=== PATIENT | male | born 1950 | race Caucasian/White ===

== ENCOUNTER 2024-05-21 16:50 | Inpatient (IN) ==
[2024-05-21] MEDS: Lactated Ringers 1000 ml BAG 1,000 ML IV ONE (21:07)
[2024-05-21 21:23] LABS: Urine Appearance Clear; Urine Bilirubin Negative (Negative); Urine Blood Negative (Negative); Urine Color Colorless; Urine Glucose Negative (Negative); Urine Ketones Negative (Negative); Urine Nitrite Negative (Negative); Urine Protein Trace (Negative); Urine Specific Gravity 1.009 (1.002-1.030); Urine Urobilinogen Negative (Negative)
[2024-05-21 21:33] LABS: Hematocrit 26.1 % (38-53); Hemoglobin 8.7 g/dL (13.2-16.3); Mean Corpuscular Hemoglobin 32.5 pg (27-33); Mean Corpuscular Hgb Conc 33.2 g/dL (31-36); Platelet Count 100 10^3/uL (150-450); Red Blood Count 2.67 10^6/uL (4.06-5.63); Red Cell Distribution Width 17.1 % (12-17); White Blood Count 3.2 10^3/uL (3.6-10.2)
[2024-05-21 22:23] LABS: TSH Ultra Thyroid Stim Horm 5.04 mcIU/mL (0.34-5.60)
[2024-05-21 22:35] LABS: ABS Lymphocytes 2.6 10^3/uL (1.0-4.8); ABS Monocytes 0.1 10^3/uL (0.0-1.1); ABS Neutrophils 0.5 10^3/uL (1.5-7.6); Anisocytosis 1+; Eosinophil % 0.5 %; Lymphocyte % 81.5 %
[2024-05-21 22:37] LABS: Albumin 3.1 g/dL (3.2-5.2); Albumin/Globulin Ratio 1.3 (1-3); Calcium 8.8 mg/dL (8.6-10.3); Creatinine, Serum 2.19 mg/dL (0.67-1.17); Globulin 2.4 g/dL (2-4); Magnesium 2.3 mg/dL (1.9-2.7); Potassium 4.2 mmol/L (3.5-5.0); Total Bilirubin 0.5 mg/dL (0.2-1.0); Total Protein 5.5 g/dL (6.4-8.9); eGFR CKD-EPI 31.4 (>60)
[2024-05-21 23:48] LABS: High Sensitivity Troponin 1 Hr 13 pg/mL (<20)
[2024-05-22 03:17] LABS: Calcium 8.8 mg/dL (8.6-10.3); Creatinine, Serum 2.25 mg/dL (0.67-1.17); Potassium 4.5 mmol/L (3.5-5.0); eGFR CKD-EPI 30.4 (>60)
[2024-05-22] MEDS: D5W 1000 ml BAG 1,000 ML IV SCH ×2 (05:47→09:56)
[2024-05-22 08:03] LABS: Hematocrit 25.4 % (38-53); Hemoglobin 8.4 g/dL (13.2-16.3); Mean Corpuscular Hemoglobin 32.8 pg (27-33); Mean Corpuscular Hgb Conc 33.2 g/dL (31-36); Mean Corpuscular Volume 98.6 fL (80-97); Red Blood Count 2.58 10^6/uL (4.06-5.63); Red Cell Distribution Width 17.5 % (12-17); White Blood Count 2.7 10^3/uL (3.6-10.2)
[2024-05-22 08:18] LABS: Calcium 8.5 mg/dL (8.6-10.3); Creatinine, Serum 2.21 mg/dL (0.67-1.17); Potassium 4.3 mmol/L (3.5-5.0); eGFR CKD-EPI 31.1 (>60)
[2024-05-22 09:00] LABS: ABS Lymphocytes 2.3 10^3/uL (1.0-4.8); ABS Neutrophils 0.4 10^3/uL (1.5-7.6); Eosinophil % 0.6 %; Lymphocyte % 84.5 %; Mean Platelet Volume 7.7 fL (7.5-11.2); Nucleated Red Blood Cells % 0.1 %/100WBC (0.0-0.8); Platelet Count 82 10^3/uL (150-450); RBC Morphology Normal (Normal)
[2024-05-22] MEDS ORDERED: Magic MouthWash2-BEN/MAAL/LIDO/NYST 240 ML BTL (alt formulation) SWISH SPIT SCH (09:00)
[2024-05-22] MEDS ORDERED: Cefepime 2 GM in Dextrose 2 GM/50 ML BAG IV SCH (14:00)
[2024-05-22] MEDS: Cefepime 1 GM in Dextrose 1 GM/50 ML BAG IV SCH (15:22)
[2024-05-22 15:53] LABS: Calcium 8.4 mg/dL (8.6-10.3); Creatinine, Serum 2.24 mg/dL (0.67-1.17); Potassium 3.7 mmol/L (3.5-5.0); eGFR CKD-EPI 30.6 (>60)
[2024-05-22] MEDS: Scopolamine 1 mg/72hr PATCH TRANSDERM SCH (16:58)
[2024-05-22 22:31] LABS: Calcium 8.1 mg/dL (8.6-10.3); Creatinine, Serum 2.3 mg/dL (0.67-1.17); Potassium 3.7 mmol/L (3.5-5.0); eGFR CKD-EPI 29.6 (>60)
[2024-05-23] MEDS: D5W 1000 ml BAG 1,000 ML IV SCH ×4 (00:08→16:15)
[2024-05-23 07:54] LABS: Calcium 7.8 mg/dL (8.6-10.3); Creatinine, Serum 2.45 mg/dL (0.67-1.17); Magnesium 2.2 mg/dL (1.9-2.7); Potassium 3.6 mmol/L (3.5-5.0); eGFR CKD-EPI 27.5 (>60)
[2024-05-23 07:58] LABS: Hematocrit 22.2 % (38-53); Hemoglobin 7.3 g/dL (13.2-16.3); Mean Corpuscular Hemoglobin 32.3 pg (27-33); Mean Corpuscular Hgb Conc 33.1 g/dL (31-36); Mean Corpuscular Volume 97.8 fL (80-97); Red Blood Count 2.27 10^6/uL (4.06-5.63); Red Cell Distribution Width 17.1 % (12-17); White Blood Count 2.2 10^3/uL (3.6-10.2)
[2024-05-23 10:26] LABS: ABS Lymphocytes 1.9 10^3/uL (1.0-4.8); ABS Neutrophils 0.2 10^3/uL (1.5-7.6); ABS Nucleated RBC 0.01 10^3/ul; Eosinophil % 0.6 %; Lymphocyte % 89.3 %; Mean Platelet Volume 7.9 fL (7.5-11.2); Nucleated Red Blood Cells % 0.3 %/100WBC (0.0-0.8); Platelet Count 43 10^3/uL (150-450)
[2024-05-23 13:15] LABS: Calcium 7.7 mg/dL (8.6-10.3); Creatinine, Serum 2.43 mg/dL (0.67-1.17); Potassium 3.6 mmol/L (3.5-5.0); eGFR CKD-EPI 27.7 (>60)
[2024-05-23] MEDS: Chlorhexidine MOUTHWASH 0.12% 15 ML UDC SWISH SPIT SCH (13:43)
[2024-05-23] MEDS ORDERED: Vancomycin per Pharmacy 1 EA NOTE FOLLOW UP SCH (15:00)
[2024-05-23] MEDS: Vancomycin 1,000 MG in NS 0.9% 250 ml 250 ML IVPB ONE (16:01)
[2024-05-23 19:01] LABS: Calcium 7.5 mg/dL (8.6-10.3); Creatinine, Serum 2.52 mg/dL (0.67-1.17); Potassium 3.5 mmol/L (3.5-5.0); eGFR CKD-EPI 26.5 (>60)
[2024-05-24 06:54] LABS: Calcium 7.3 mg/dL (8.6-10.3); Creatinine, Serum 2.56 mg/dL (0.67-1.17); Potassium 3.3 mmol/L (3.5-5.0)
[2024-05-24 07:57] LABS: ABS Lymphocytes 2.6 10^3/uL (1.0-4.8); ABS Neutrophils 0.3 10^3/uL (1.5-7.6); Eosinophil % 0.6 %; Hematocrit 19.1 % (38-53); Hemoglobin 6.4 g/dL (13.2-16.3); Mean Corpuscular Hemoglobin 32.3 pg (27-33); Mean Corpuscular Hgb Conc 33.5 g/dL (31-36); Mean Corpuscular Volume 96.6 fL (80-97); Mean Platelet Volume 7.4 fL (7.5-11.2); Nucleated Red Blood Cells % 0.1 %/100WBC (0.0-0.8); Platelet Count 21 10^3/uL (150-450); Red Blood Count 1.98 10^6/uL (4.06-5.63); Red Cell Distribution Width 16.7 % (12-17)
[2024-05-24] MEDS: D5W 1000 ml BAG 1,000 ML IV SCH (10:25)
[2024-05-24] MEDS: Azithromycin 500 mg/250 ml NS 500 MG/250 ML BAG IVPB SCH (12:45)
[2024-05-24 16:52] LABS: Hematocrit 27.8 % (38-53); Hemoglobin 9.5 g/dL (13.2-16.3)
[2024-05-25 07:10] LABS: Calcium 7.6 mg/dL (8.6-10.3); Creatinine, Serum 2.46 mg/dL (0.67-1.17); Magnesium 2.1 mg/dL (1.9-2.7); Phosphorus 4.2 mg/dL (2.5-5.0); Potassium 3.4 mmol/L (3.5-5.0); Vancomycin Random 8.3 mcg/mL; eGFR CKD-EPI 27.3 (>60)
[2024-05-25 07:33] LABS: ABS Lymphocytes 3.1 10^3/uL (1.0-4.8); ABS Monocytes 0.1 10^3/uL (0.0-1.1); ABS Neutrophils 0.5 10^3/uL (1.5-7.6); Eosinophil % 0.6 %; Hematocrit 24.9 % (38-53); Hemoglobin 8.5 g/dL (13.2-16.3); Lymphocyte % 83.5 %; Mean Corpuscular Hgb Conc 34.2 g/dL (31-36); Mean Corpuscular Volume 96.7 fL (80-97); Mean Platelet Volume 8.8 fL (7.5-11.2); Nucleated Red Blood Cells % 0.1 %/100WBC (0.0-0.8); Platelet Count 10 10^3/uL (150-450); Red Blood Count 2.57 10^6/uL (4.06-5.63); Red Cell Distribution Width 16.2 % (12-17); White Blood Count 3.7 10^3/uL (3.6-10.2)
[2024-05-25 07:34] LABS: Anisocytosis 1+
[2024-05-25] MEDS: Vancomycin Random Level NOTE FOLLOW UP ONE (08:50)
[2024-05-25] MEDS: Potassium Chlor 20 meq TAB.ER PO ONE (11:17)
[2024-05-25] MEDS: KCL 10 MEQ/50 ML IVPREMIX 10 MEQ/50 ML BAG IV SCH (11:18)
[2024-05-25] MEDS: Vancomycin 1000 MG in NS 0.9% 250 ML IVPB ONE (11:20)
[2024-05-25] MEDS: Dexamethasone 0.1 MG/ML ORALSYR SWISH SPIT SCH (17:24)
[2024-05-25] MEDS: Dexamethasone Oral Solution 1 MG/ML 10 ML UDC (10 MG) PO SCH (17:38)
[2024-05-26 07:26] LABS: Hematocrit 21.4 % (38-53); Hemoglobin 7.4 g/dL (13.2-16.3); Mean Corpuscular Hemoglobin 32.8 pg (27-33); Mean Corpuscular Hgb Conc 34.5 g/dL (31-36); Mean Corpuscular Volume 95.2 fL (80-97); Mean Platelet Volume 9.4 fL (7.5-11.2); Platelet Count 5 10^3/uL (150-450); Red Blood Count 2.25 10^6/uL (4.06-5.63); Red Cell Distribution Width 15.8 % (12-17); White Blood Count 3.4 10^3/uL (3.6-10.2)
[2024-05-26 08:01] LABS: Calcium 7.5 mg/dL (8.6-10.3); Creatinine, Serum 2.48 mg/dL (0.67-1.17); Magnesium 2.1 mg/dL (1.9-2.7); Potassium 3.3 mmol/L (3.5-5.0); Vancomycin Random 15.3 mcg/mL; eGFR CKD-EPI 27.1 (>60)
[2024-05-26] MEDS: KCL 10 MEQ/50 ML IVPREMIX 10 MEQ/50 ML BAG IV SCH (11:01)
[2024-05-26] MEDS: Potassium Chlor 20 meq TAB.ER PO ONE (11:02)
[2024-05-26] MEDS: Alteplase (CATHFLO) 2 MG VIAL IV ONE (11:03)
[2024-05-26 11:50] LABS: ABS Neutrophils 0.7 10^3/uL (1.5-7.6)
[2024-05-26] MEDS: Vancomycin Random Level NOTE FOLLOW UP ONE (12:02)
[2024-05-26] MEDS: Vancomycin 1000 MG in NS 0.9% 250 ML IVPB ONE (12:03)
[2024-05-26 12:12] LABS: ABS Lymphocytes 2.6 10^3/uL (1.0-4.8); ABS Nucleated RBC 0.01 10^3/ul; Eosinophil % 0.4 %; Lymphocyte % 78.1 %; Nucleated Red Blood Cells % 0.3 %/100WBC (0.0-0.8); RBC Morphology Normal (Normal)
[2024-05-26 18:07] LABS: Hematocrit 20.6 % (38-53); Hemoglobin 7.2 g/dL (13.2-16.3); Mean Corpuscular Hemoglobin 33.4 pg (27-33); Mean Corpuscular Volume 95.2 fL (80-97); Red Blood Count 2.16 10^6/uL (4.06-5.63); Red Cell Distribution Width 15.7 % (12-17); White Blood Count 3.7 10^3/uL (3.6-10.2)
[2024-05-26] MEDS: TPN 24 HR with Dextrose 50% Water 500 ML, Amino Acid Infusion 10% 850 ML, Sterile Water... CENT\\PICC SCH (18:34)
[2024-05-26 18:46] LABS: Platelet Count Platelets clumped. 10^3/uL (150-450)
[2024-05-26 19:05] LABS: ABS Lymphocytes 2.5 10^3/uL (1.0-4.8); ABS Neutrophils 1.2 10^3/uL (1.5-7.6); Eosinophil % 0.2 %; Lymphocyte % 67.1 %; Nucleated Red Blood Cells % 0.1 %/100WBC (0.0-0.8)
[2024-05-26 19:06] LABS: RBC Morphology Normal (Normal)
[2024-05-26 19:25] LABS: Mean Platelet Volume 7.1 fL (7.5-11.2); Platelet Count 18 10^3/uL (150-450)
[2024-05-27 08:20] LABS: Hematocrit 21.2 % (38-53); Hemoglobin 7.2 g/dL (13.2-16.3); Mean Corpuscular Hemoglobin 32.4 pg (27-33); Mean Corpuscular Hgb Conc 34.1 g/dL (31-36); Mean Platelet Volume 7.6 fL (7.5-11.2); Platelet Count 11 10^3/uL (150-450); Red Blood Count 2.23 10^6/uL (4.06-5.63); Red Cell Distribution Width 15.6 % (12-17); White Blood Count 3.6 10^3/uL (3.6-10.2)
[2024-05-27 08:58] LABS: Calcium 7.9 mg/dL (8.6-10.3); Creatinine, Serum 2.22 mg/dL (0.67-1.17); Magnesium 2.2 mg/dL (1.9-2.7); Potassium 4.1 mmol/L (3.5-5.0); eGFR CKD-EPI 30.9 (>60)
[2024-05-27 09:15] LABS: ABS Lymphocytes 2.1 10^3/uL (1.0-4.8); ABS Neutrophils 1.4 10^3/uL (1.5-7.6); Dohle Bodies Present; Eosinophil % 0.1 %; Lymphocyte % 59.3 %; Nucleated Red Blood Cells % 0.1 %/100WBC (0.0-0.8); RBC Morphology Normal (Normal)
[2024-05-27] MEDS: KCL 10 MEQ/50 ML IVPREMIX 10 MEQ/50 ML BAG IV SCH (09:48)
[2024-05-27] MEDS: Potassium Chloride LIQUID 20 MEQ/15 ML LIQUID PO ONE (09:49)
[2024-05-27] MEDS: TPN 24 HR with Dextrose 50% Water 500 ML, Amino Acid Infusion 10% 850 ML, Sterile Water... CENT\\PICC SCH (17:18)
[2024-05-28 06:44] LABS: Calcium 8.5 mg/dL (8.6-10.3); Creatinine, Serum 1.91 mg/dL (0.67-1.17); Magnesium 2.3 mg/dL (1.9-2.7); Phosphorus 3.4 mg/dL (2.5-5.0); Potassium 4.3 mmol/L (3.5-5.0)
[2024-05-28 07:28] LABS: Albumin 2.9 g/dL (3.2-5.2); Albumin/Globulin Ratio 1.3 (1-3); Calcium 8.5 mg/dL (8.6-10.3); Creatinine, Serum 1.92 mg/dL (0.67-1.17); Globulin 2.2 g/dL (2-4); Magnesium 2.2 mg/dL (1.9-2.7); Phosphorus 3.3 mg/dL (2.5-5.0); Potassium 4.3 mmol/L (3.5-5.0); Total Bilirubin 0.5 mg/dL (0.2-1.0); Total Protein 5.1 g/dL (6.4-8.9); eGFR CKD-EPI 36.8 (>60)
[2024-05-28 07:48] LABS: ABS Lymphocytes 2.9 10^3/uL (1.0-4.8); ABS Monocytes 0.1 10^3/uL (0.0-1.1); ABS Neutrophils 2.4 10^3/uL (1.5-7.6); Eosinophil % 0.1 %; Hematocrit 25.5 % (38-53); Hemoglobin 8.8 g/dL (13.2-16.3); Mean Corpuscular Hemoglobin 31.9 pg (27-33); Mean Corpuscular Hgb Conc 34.5 g/dL (31-36); Mean Corpuscular Volume 92.3 fL (80-97); Mean Platelet Volume 8.8 fL (7.5-11.2); Nucleated Red Blood Cells % 0.1 %/100WBC (0.0-0.8); Platelet Count 7 10^3/uL (150-450); RBC Morphology Normal (Normal); Red Blood Count 2.76 10^6/uL (4.06-5.63); Red Cell Distribution Width 17.7 % (12-17); White Blood Count 5.4 10^3/uL (3.6-10.2)
[2024-05-28] MEDS: D5W 1000 ml BAG 1,000 ML IV SCH (14:58)
[2024-05-29 07:27] LABS: Hematocrit 24.3 % (38-53); Hemoglobin 8.4 g/dL (13.2-16.3); Mean Corpuscular Hemoglobin 32.2 pg (27-33); Mean Corpuscular Hgb Conc 34.6 g/dL (31-36); Mean Corpuscular Volume 92.9 fL (80-97); Mean Platelet Volume 8.8 fL (7.5-11.2); Platelet Count 10 10^3/uL (150-450); Red Blood Count 2.62 10^6/uL (4.06-5.63); Red Cell Distribution Width 17.4 % (12-17); White Blood Count 5.9 10^3/uL (3.6-10.2)
[2024-05-29 09:11] LABS: Albumin 2.8 g/dL (3.2-5.2); Albumin/Globulin Ratio 1.4 (1-3); Calcium 8.4 mg/dL (8.6-10.3); Creatinine, Serum 1.64 mg/dL (0.67-1.17); Magnesium 2.1 mg/dL (1.9-2.7); Phosphorus 2.8 mg/dL (2.5-5.0); Potassium 4.1 mmol/L (3.5-5.0); Total Bilirubin 0.4 mg/dL (0.2-1.0); Total Protein 4.8 g/dL (6.4-8.9); eGFR CKD-EPI 44.4 (>60)
[2024-05-29 19:58] LABS: Mean Platelet Volume 8.6 fL (7.5-11.2); Platelet Count 9 10^3/uL (150-450)
[2024-05-30 06:36] LABS: Albumin 2.8 g/dL (3.2-5.2); Albumin/Globulin Ratio 1.5 (1-3); Calcium 8.3 mg/dL (8.6-10.3); Creatinine, Serum 1.46 mg/dL (0.67-1.17); Globulin 1.9 g/dL (2-4); Magnesium 2.1 mg/dL (1.9-2.7); Phosphorus 2.3 mg/dL (2.5-5.0); Potassium 4.1 mmol/L (3.5-5.0); Total Bilirubin 0.4 mg/dL (0.2-1.0); Total Protein 4.7 g/dL (6.4-8.9); eGFR CKD-EPI 51.1 (>60)
[2024-05-30 07:14] LABS: White Blood Count 6.3 10^3/uL (3.6-10.2)
[2024-05-30 07:15] LABS: Hematocrit 21.5 % (38-53); Hemoglobin 7.4 g/dL (13.2-16.3); Mean Corpuscular Hemoglobin 31.8 pg (27-33); Mean Corpuscular Hgb Conc 34.3 g/dL (31-36); Mean Corpuscular Volume 92.8 fL (80-97); Mean Platelet Volume 9.6 fL (7.5-11.2); Platelet Count 7 10^3/uL (150-450); Red Blood Count 2.32 10^6/uL (4.06-5.63); Red Cell Distribution Width 17.1 % (12-17)
[2024-05-30 08:04] LABS: ABS Lymphocytes 3.2 10^3/uL (1.0-4.8); ABS Nucleated RBC 0.01 10^3/ul; Eosinophil % 0.1 %; Lymphocyte % 51.1 %; Nucleated Red Blood Cells % 0.1 %/100WBC (0.0-0.8); RBC Morphology Normal (Normal)
[2024-05-30 21:17] LABS: Mean Platelet Volume 9.3 fL (7.5-11.2); Platelet Count 13 10^3/uL (150-450)
[2024-05-31 07:28] LABS: Hematocrit 20.4 % (38-53); Hematocrit for Retic CNT 20.4 % (38-53); Mean Corpuscular Hemoglobin 32.2 pg (27-33); Mean Corpuscular Hgb Conc 34.4 g/dL (31-36); Mean Corpuscular Volume 93.6 fL (80-97); Mean Platelet Volume 9.4 fL (7.5-11.2); Platelet Count 10 10^3/uL (150-450); RBC Retic Count 2.18 10^6/ul (4.06-5.63); Red Blood Count 2.18 10^6/uL (4.06-5.63); Red Cell Distribution Width 16.9 % (12-17); White Blood Count 6.7 10^3/uL (3.6-10.2)
[2024-05-31 08:23] LABS: ABS Lymphocytes 2.7 10^3/uL (1.0-4.8); ABS Monocytes 0.1 10^3/uL (0.0-1.1); ABS Neutrophils 3.9 10^3/uL (1.5-7.6); ABS Nucleated RBC 0.01 10^3/ul; Corrected Retic Count 0.3 % (0.5-1.5); Eosinophil % 0.1 %; Immature Retic Fraction 0.02; Lymphocyte % 40.7 %; Nucleated Red Blood Cells % 0.1 %/100WBC (0.0-0.8); RBC Morphology Normal (Normal)
[2024-05-31 13:25] LABS: Albumin 2.9 g/dL (3.2-5.2); Albumin/Globulin Ratio 1.5 (1-3); Calcium 8.3 mg/dL (8.6-10.3); Creatinine, Serum 1.38 mg/dL (0.67-1.17); Magnesium 1.9 mg/dL (1.9-2.7); Phosphorus 2.1 mg/dL (2.5-5.0); Potassium 4.5 mmol/L (3.5-5.0); Total Bilirubin 0.4 mg/dL (0.2-1.0); Total Protein 4.9 g/dL (6.4-8.9); eGFR CKD-EPI 54.7 (>60)
[2024-05-31 22:58] LABS: Mean Platelet Volume 9.4 fL (7.5-11.2); Platelet Count 7 10^3/uL (150-450)
[2024-06-01 00:16] LABS: Hematocrit 19.1 % (38-53); Hemoglobin 6.4 g/dL (13.2-16.3)
[2024-06-01 06:31] LABS: Hematocrit 22.4 % (38-53); Hemoglobin 7.8 g/dL (13.2-16.3); Mean Corpuscular Hemoglobin 32.1 pg (27-33); Mean Corpuscular Hgb Conc 34.8 g/dL (31-36); Mean Corpuscular Volume 92.2 fL (80-97); Mean Platelet Volume 8.8 fL (7.5-11.2); Platelet Count 28 10^3/uL (150-450); Red Blood Count 2.43 10^6/uL (4.06-5.63); Red Cell Distribution Width 15.8 % (12-17); White Blood Count 8.5 10^3/uL (3.6-10.2)
[2024-06-01 07:11] LABS: Albumin 2.8 g/dL (3.2-5.2); Albumin/Globulin Ratio 1.5 (1-3); Calcium 8.4 mg/dL (8.6-10.3); Creatinine, Serum 1.36 mg/dL (0.67-1.17); Globulin 1.9 g/dL (2-4); HDL Cholesterol 39.2 mg/dL; Phosphorus 2.8 mg/dL (2.5-5.0); Potassium 4.6 mmol/L (3.5-5.0); Total Bilirubin 0.8 mg/dL (0.2-1.0); Total Protein 4.7 g/dL (6.4-8.9); eGFR CKD-EPI 55.6 (>60)
[2024-06-01 07:25] LABS: ABS Lymphocytes 4.1 10^3/uL (1.0-4.8); ABS Monocytes 0.1 10^3/uL (0.0-1.1); ABS Neutrophils 4.3 10^3/uL (1.5-7.6); ABS Nucleated RBC 0.01 10^3/ul; Eosinophil % 0.1 %; Lymphocyte % 48.2 %; Nucleated Red Blood Cells % 0.1 %/100WBC (0.0-0.8)
[2024-06-01] MEDS: D5W 1000 ml BAG 1,000 ML IV SCH (12:55)
[2024-06-01] MEDS: TPN 24 HR with Dextrose 40% Water 500 ML, Amino Acid Infusion 10% 850 ML, Sterile Water... CENT\\PICC SCH (17:12)
[2024-06-02 06:28] LABS: Hematocrit 22.1 % (38-53); Hemoglobin 7.7 g/dL (13.2-16.3); Mean Corpuscular Hemoglobin 32.2 pg (27-33); Mean Corpuscular Hgb Conc 34.9 g/dL (31-36); Mean Corpuscular Volume 92.4 fL (80-97); Red Blood Count 2.39 10^6/uL (4.06-5.63); Red Cell Distribution Width 15.5 % (12-17); White Blood Count 7.1 10^3/uL (3.6-10.2)
[2024-06-02 07:22] LABS: Calcium 8.2 mg/dL (8.6-10.3); Creatinine, Serum 1.37 mg/dL (0.67-1.17); eGFR CKD-EPI 55.2 (>60)
[2024-06-02 07:46] LABS: ABS Lymphocytes 3.4 10^3/uL (1.0-4.8); ABS Monocytes 0.1 10^3/uL (0.0-1.1); ABS Neutrophils 3.6 10^3/uL (1.5-7.6); Eosinophil % 0.1 %; Lymphocyte % 48.1 %; Mean Platelet Volume 8.8 fL (7.5-11.2); Platelet Count 15 10^3/uL (150-450)
[2024-06-02] MEDS: Cyanocobalamin INJ 1,000 MCG/ML VIAL 1 ML VIAL IM ONE (10:10)
[2024-06-02] MEDS: Lactated Ringers 1000 ml BAG 1,000 ML IV SCH (10:38)
[2024-06-02] MEDS: TPN 24 HR with Dextrose 40% Water 500 ML, Amino Acid Infusion 10% 850 ML, Sterile Water... CENT\\PICC SCH (21:27)
[2024-06-03 06:51] LABS: Albumin/Globulin Ratio 1.7 (1-3); Calcium 8.4 mg/dL (8.6-10.3); Creatinine, Serum 1.32 mg/dL (0.67-1.17); Globulin 1.8 g/dL (2-4); Phosphorus 3.2 mg/dL (2.5-5.0); Potassium 4.7 mmol/L (3.5-5.0); Total Bilirubin 0.4 mg/dL (0.2-1.0); Total Protein 4.8 g/dL (6.4-8.9); eGFR CKD-EPI 57.7 (>60)
[2024-06-03 07:31] LABS: Hemoglobin 7.6 g/dL (13.2-16.3); Mean Corpuscular Hemoglobin 32.2 pg (27-33); Mean Corpuscular Hgb Conc 34.7 g/dL (31-36); Mean Corpuscular Volume 92.9 fL (80-97); Red Blood Count 2.37 10^6/uL (4.06-5.63); Red Cell Distribution Width 15.4 % (12-17); White Blood Count 7.1 10^3/uL (3.6-10.2)
[2024-06-03 08:26] LABS: ABS Lymphocytes 3.3 10^3/uL (1.0-4.8); ABS Monocytes 0.1 10^3/uL (0.0-1.1); ABS Neutrophils 3.7 10^3/uL (1.5-7.6); Lymphocyte % 46.7 %; Mean Platelet Volume 9.2 fL (7.5-11.2); Platelet Count 13 10^3/uL (150-450)
[2024-06-03 17:34] VITALS: BP 144/85
== END 2024-06-03 18:15 | disposition home or self-care (01) | DRG 808 ==
LOC: ED 16:50 → EDHOLD 16:50 → MEDTELE 05-22 07:36 → SUATTDRO 05-23 12:26
PROVIDERS: ADMIT Student in an Organized Health Care Education/Training Program; ATTEND Student in an Organized Health Care Education/Training Program